=== PATIENT | female | born 1960 | race American Indian/Alaskan Native ===

== ENCOUNTER 2017-03-28 14:26 | Emergency (ER) | payer BC ==
[2017-03-28 14:33] VITALS: TEMP 97.8; O2SAT 98
--- NOTE | 2017-03-28 15:15 | C.PDOC ---
History Of Present Illness 57 yo female come in for evaluation of Right knee pain " for long time" got worse for past few weeks. Pt admits, pain is localized and worse after prolong ambulation. Pt denies recent trauma or injury, fever, chills, knee swelling or skin changes. Ambulate to ED for evaluation, not n any apparent distress. Time Seen by Provider: 03/28/17 14:37 Chief Complaint (Nursing): Lower Extremity Problem/Injury History Per: Patient Onset/Duration Of Symptoms: Intermittent Episodes, Gradual Past Medical History Reviewed: Historical Data, Nursing Documentation, Vital Signs Vital Signs: Last Vital Signs Temp 97.8 F 03/28/17 14:31 Pulse 73 03/28/17 14:31 Resp 16 03/28/17 14:31 BP 119/81 03/28/17 14:31 Pulse Ox 98 03/28/17 15:19 - Medical History PMH: No Chronic Diseases Surgical History: No Surg Hx Family History: States: No Known Family Hx - Social History Hx Alcohol Use: Yes Hx Substance Use: No - Immunization History Hx Tetanus Toxoid Vaccination: No Hx Influenza Vaccination: No Hx Pneumococcal Vaccination: No Review Of Systems Except As Marked, All Systems Reviewed And Found Negative. Constitutional: Negative for: Fever, Chills ENT: Negative for: Throat Pain Musculoskeletal: Positive for: Other (Right knee pain) Neurological: Negative for: Weakness, Numbness Physical Exam - Physical Exam Appears: Well, Non-toxic, No Acute Distress Skin: Normal Color, Warm, No Rash, No Ecchymosis Extremity: Normal ROM (RLE), Tenderness (mild tenderness anterior aspect Right knee. No edema, no erythema, no deformity. FAROM, no neurovascular deficits.), No Calf Tenderness, Capillary Refill (less than 2sec to Right foot), No Deformity, No Swelling Neurological/Psych: Oriented x3, Normal Speech, Normal Motor, Normal Sensation, Normal Reflexes ED Course And Treatment O2 Sat by Pulse Oximetry: 98 - Other Rad Right knee xray X-Ray: Interpreted by Me, Viewed By Me Interpretation: (-) acute fx or dislocation Progress Note: On re-evaluation, pt is afebirle, hemodynamicaly stable. Non- toxic. AMbulatory in ED with stable gait. RLE: exam c/w right knee arthralgia , FAROM, no neurovascular deficits, no deformity. Neurologicaly intact. Imaging review and appears normal. Atilio wrap applied to right knee. Pt advised on course of ds. ref. to f/u with PMD and Ortho in2 -3 days for re-eavl. return to ED if any new changes. Disposition Counseled Patient/Family Regarding: Studies Performed, Diagnosis, Need For Followup, Rx Given - Disposition Referrals: Jose Da Silva MD [Staff Provider] - Darius Harris III, MD [Staff Provider] - Disposition: HOME/ ROUTINE Disposition Time: 15:30 Condition: STABLE Additional Instructions: Atilio wrap to knee Take medication as prescribed Follow up with PMD, Orthopedist in 2-3 days for re-evaluation. Return to ED if nay worsening or new changes. Prescriptions: Meloxicam [Mobic] 7.5 mg PO DAILY #14 tab Instructions: Knee Pain (ED), Osteoarthritis (ED) Forms: [facility] (French) - Clinical Impression Clinical Impression: Arthritis, Arthralgia of knee
--- NOTE | 2017-03-28 15:35 | RAD ---
PROCEDURE: Right Knee Radiographs. HISTORY: pain COMPARISON: None. FINDINGS: BONES: Normal. No fracture. JOINTS: Narrowing of lateral joint compartment with mild subchondral sclerosis of the lateral tibial plateau. Medial and patellofemoral compartments are preserved. No articular erosion. JOINT EFFUSION: None. OTHER FINDINGS: None. IMPRESSION: Lateral osteoarthritis peer
[2017-03-28 16:05] VITALS: BP 124/72; PULSE 72; RESP 18
== END 2017-03-28 16:05 | disposition home or self-care (01) ==
LOC: C.ER 14:26
DX: M17.11 Unilateral primary osteoarthritis, right knee (principal)